=== PATIENT | male | born 1995 | race Caucasian/White ===

== ENCOUNTER → 2019-12-03 14:16 | Outpatient (BNVA) | payer SELFPAY | PROVIDERS: Visit Provider Nurse Practitioner | DX: Z20.2 Contact with and (suspected) exposure to infections with a predominantly sexual mode of transmission (principal); A60.02 Herpesviral infection of other male genital organs | CPT/HCPCS: 81000; 87491; 87591 ==

== ENCOUNTER → 2020-08-05 12:06 | Outpatient (BNVA) | payer OTHER, SELFPAY | PROVIDERS: Visit Provider Nurse Practitioner Psychiatric/Mental Health | DX: Z79.899 Other long term (current) drug therapy (principal) | CPT/HCPCS: 80053; 80061; 83036 ==

== ENCOUNTER → 2022-09-29 11:27 | Outpatient (BNVA) | payer OTHER, SELFPAY | PROVIDERS: PCP Family Medicine; Visit Provider Nurse Practitioner Psychiatric/Mental Health | DX: Z79.899 Other long term (current) drug therapy (principal) | CPT/HCPCS: 80053; 80061; 83036 ==

== ENCOUNTER 2022-12-15 14:15 | Outpatient (CLI) | payer SELFPAY ==
--- NOTE | 2022-12-15 14:36 | ECG_ITS ---
[facility] Test Date: 2022-12-15 Pat Name: Minor Burrell Department: Room: Gender: Male Mortgage Loan Processor: : 1995 Requested By: Nany Barker Order Number: [id number] Grazyna MD: Sacha Mcclendon M.D. Measurements Intervals [place] Rate: 61 P: 23 SD: 156 QRS: 51 QRSD: 90 T: 11 QT: 354 QTc: 357 Interpretive Statements SINUS RHYTHM Compared to ECG 10/20/2014 21:17:53 Sinus tachycardia no longer present Electronically Signed On 12-15-2022 16:37:43 [employer]CHITECT by Sacha Mcclendon M.D. [email or web address] [email or web address] [email or web address] [id number]
== END 2022-12-15 14:16 | disposition home or self-care (01) ==
LOC: RT 14:15
PROVIDERS: PCP Family Medicine; Visit Provider Nurse Practitioner Psychiatric/Mental Health
DX: Z79.899 Other long term (current) drug therapy (principal)
CPT/HCPCS: 93005

== ENCOUNTER 2023-01-17 01:04 | Emergency (ER) | payer SELFPAY ==
[2023-01-17 01:08] VITALS: BP 157/102; PULSE 87; RESP 18; TEMP 36.6; O2SAT 98; BMI 25.7
--- NOTE | 2023-01-17 01:08 | W.ED.PSYCHS ---
HPI - Psych General: Chief Complaint: Psychiatric Symptoms Stated Complaint: panic attack Time Seen by Provider: 01/17/23 01:06 History of Present Illness: 27-year-old male presents emergency department with complaints of a panic attack. He states that he has medications he normally takes for his panic attack to include Geodon, Haldol and propranolol. He states that he also drinks alcohol periodically. He states he feels much better now but did feel anxious prior to coming to the emergency department. He states he is unsure what causes his panic attacks but he takes medication for all of that. He states he has recently seen his behavioral health provider and has not received any medication changes. Review of Systems General: Reports: 10 or more systems reviewed and unremarkable except in HPI and below Psych: Reports: anxiety and panic attacks [facility] ED PFSH: Medical History (Updated 01/17/23 @ 01:15 by Joselito Slater MD) Alcohol abuse, episodic drinking behavior Last use in June 2022 Medical marijuana use Bipolar I disorder, most recent episode mixed, severe without psychotic features Psychiatric care Nicotine dependence, cigarettes, uncomplicated Generalized anxiety disorder Social History (Updated 09/29/22 @ 10:14 by Litzy Gleason LPN) Smoking and tobacco/nicotine status: current every day tobacco/nicotine user cigarettes Packs smoked per day: 1 Alcohol intake: current Alcohol intake frequency: holidays/special occasions only Alcohol type: beer Substance/Drug Use: never Household members: spouse and children Marital status: Number of children: 6 Current occupational status: employed Sexually active: Yes Do you think of yourself as: Straight/Heterosexual Current gender identity: Male Physical Exam Narrative: EXAM NARRATIVE: Constitutional: the patient appears well nourished and with normal development. Vital signs reviewed as documented. HENMT: Normocephalic, atraumatic. Extermal ears with normal appearance without drainage. Nose without drainage, normal appearance. Mucus membranes moist. Neck is supple, No jugular venous distension, trachea is midline, no appreciable carotid bruits. No lymphadenopathy. No meningeal signs. Flexion, extension and lateral rotation is without pain. Eyes: Pupils are equal, round, reactive to light and accommodation. No scleral icterus. Extra-ocular movement are intact. Thorax is symmetrical and with equal rise and fall with respirations. Resp: Lungs are clear to auscultation. No wheezes, rales, crackles or ronchi at present. Cardio: Regular rate and rhythm. Positive S1, S2. No appreciable murmurs, rubs or gallops. GI: Abdominal exam reveals normal bowel sounds to all quadrants. No organomegaly. No obvious palpable masses noted. No hepatomegally appreciated. Soft, nontender to palpation. Extremity: Extremities are non-edematous and both femoral and pedal pulses are 2+ and equal bilaterally. Moves all extremities well, sensation in all extremities. Neuro: Alert and oriented x4, person, place, time and situation. Cranial nerves II through XII are grossly intact, there is no focal neurological deficits that I can appreciate at present. Motor strength in the upper and lower extremities are equal and bilateral 5/5. Psych: Cooperative, calm, normal thought process, appropriate judgment. Skin: No lesions, rashes. No gross abnormalities noted. Back: Symmetrical, no obvious deformity, No CVA tenderness Course Vital Signs: Vital signs: Vital Signs Temperature 97.9 F 01/17/23 01:24 Pulse Rate 87 01/17/23 01:24 Respiratory Rate 18 01/17/23 01:24 Blood Pressure 149/97 01/17/23 01:24 Pulse Oximetry 98 01/17/23 01:24 Oxygen Delivery Me thod Room Air 01/17/23 01:08 MDM - Psych Medical Decision Making Physical exam completed and documented, given the patient's previous psychiatric medications and his statement that he recently took all the medications as prescribed and that he is feeling much better I will monitor him in the emergency department trend his vital signs and have him follow-up with his behavioral health medical team. Medical Records I reviewed the patient's medical records. No radiology studies performed this visit Discharge Plan Discharge Patient Disposition: Home Clinical Impression: Generalized anxiety disorder Condition: Stable Prescriptions: No Action ziprasidone HCl 40 mg capsule 40 mg PO DIRECTED Qty: 30 3RF Rx Instructions: Take one capsule at dinner with 500 calorie meal propranolol 10 mg tablet 10 mg PO BID Qty: 60 3RF Rx Instructions: Take one tablet every morning and evening haloperidol 5 mg tablet 5 mg PO DAILY PRN (Reason: severe anxiety/agitation) Qty: 30 1RF Rx Instructions: Take one tablet daily as needed for severe acute anxiety/agitation Discharge Orders: Discharge ED (Routine); Ordered 01/17/23 Ordered By: Joselito Slater Discharge Diet: Advance as tolerated Discharge Activity: Resume usual activity Patient Instructions: Opioid Safety, Pain Management Activity Restrictions/Additional Instructions: Activity Restrictions/Additional Instructions: Thank you for choosing [facility] for your healthcare needs today. Please realize that you were seen in the Emergency Department and that we are providing you with an emergency medical screening exam and this may not be a complete and all inclusive of all the testing and or medical work-up that you may need to determine your ailment or severity of your illness. It is very important that you follow-up as instructed with your Primary care provider or Specialist for additional evaluation and to discuss your medical treatment plan. You may return to the Emergency Department should you have concerns or if your condition changes or worsens in any way. Coding Level of Care Code ED Special Education Inclusion Teacher for Jake Khan
[2023-01-17 01:24] VITALS: BP 149/97; PULSE 87; RESP 18; TEMP 36.6; O2SAT 98
== END 2023-01-17 01:41 | disposition home or self-care (01) ==
PROVIDERS: Emergency Provider Internal Medicine
DX: F41.1 Generalized anxiety disorder (principal); F17.210 Nicotine dependence, cigarettes, uncomplicated
CPT/HCPCS: 99283

== ENCOUNTER 2023-09-17 23:21 | Emergency (ER) | payer SELFPAY ==
[2023-09-17 23:34] VITALS: BP 127/91; PULSE 85; RESP 16; TEMP 37.1; O2SAT 96; BMI 30.2
--- NOTE | 2023-09-17 23:35 | ED_ITS ---
HPI - Ear Problem General: Chief complaint: Ear Stated complaint: Ear pain Time Seen by Provider: 09/17/23 23:34 History of Present Illness: 28-year-old male patient comes in today for complaints of left ear pain. Patient has a ear that has given him pain for about 1 week. Patient has been trying some colloidal silver eardrops to his ear with no relief. Related Data Previous Rx's Medication Instructions Recorded clonidine HCl 0.1 mg tablet 0.1 mg PO BEDTIME #30 tabs 07/07/23 propranolol 20 mg tablet 20 mg PO BID #60 tabs 07/07/23 quetiapine 150 mg tablet,extended 150 mg PO .8 pm #30 tabs 07/07/23 release 24 hr (Seroquel XR) amoxicillin 500 mg tablet 1,000 mg (2 x 500 mg) PO BID #30 09/17/23 tabs Allergies Allergy/AdvReac Type Severity Reaction Status Date / Time lorazepam [From Ativan] Allergy ADR-Irritab Verified 07/07/23 13:54 le citalopram AdvReac Severe ADR-Halluci Verified 07/07/23 13:54 erin Review of Systems General: Reports: 10 or more systems reviewed and unremarkable except in HPI and below PFSH ED 2 PFSH: Medical History (Updated 09/17/23 @ 23:42 by CHLOE Marroquin) Bipolar I disorder, most recent episode mixed, severe without psychotic features Psychiatric care Nicotine dependence, cigarettes, uncomplicated Generalized anxiety disorder Social History (Updated 09/29/22 @ 10:14 by Litzy Gleason LPN) Smoking and tobacco/nicotine status: current every day tobacco/nicotine user cigarettes Packs smoked per day: 1 Alcohol intake: current Alcohol intake frequency: holidays/special occasions only Alcohol type: beer Substance/Drug Use: never Household members: spouse and children Marital status: Number of children: 6 Current occupational status: employed Sexually active: Yes Do you think of yourself as: Straight/Heterosexual Current gender identity: Male Physical Exam Const: COMMON NORMALS: alert HENMT: COMMON NORMALS: normocephalic HEAD & SCALP: normocephalic EXTERNAL AUDITORY CANAL: Abnormal EAC present EAC laterality: left Details: erythema and otic discharge THROAT: posterior oropharynx normal Neck/C-Spine: COMMON NORMALS: full ROM Resp: COMMON NORMALS: normal respiratory effort Cardio: COMMON NORMALS: regular rate RATE: regular rate Back/Pelvis: COMMON NORMALS: thoracic and lumbar spine normal to inspection Extremity: COMMON NORMALS: full ROM Neuro: SENSORIUM/ORIENTATION: Yes alert Skin: COMMON NORMALS: turgor normal GENERAL SKIN EXAM: turgor normal Course Vital Signs: Vital signs: Vital Signs Temperature 98.7 F 09/17/23 23:34 Pulse Rate 85 09/17/23 23:34 Respiratory Rate 16 09/17/23 23:34 Blood Pressure 127/91 09/17/23 23:34 Pulse Oximetry 96 09/17/23 23:34 Oxygen Delivery Me thod Room Air 09/17/23 23:34 MDM - Ear Medical Decision Making 28-year-old male patient comes in today with complaints of pain to the left ear. On exam patient has some drainage noted in the left ear with surrounding erythema to the ear canal. Tympanic membrane notes some drainage from a perforated membrane. This may be a chronic opening as patient does report histo ry of recurrent ear infections. Will place patient on otic drops and oral antibiotic for dual coverage. Recommend follow-up with primary care. Recommend return to ER for new concerns. No radiology studies performed this visit Discharge Plan Discharge Patient Disposition: Home Clinical Impression: Otitis media Qualifiers: Otitis media type: suppurative Chronicity: acute Laterality: left Recurrence: not specified as recurrent Spontaneous tympanic membrane rupture: with spontaneous rupture Qualified Code(s): H66.012 - Acute suppurative otitis media with spontaneous rupture of ear drum, left ear Condition: Stable Prescriptions: New amoxicillin 500 mg tablet 1,000 mg PO BID Qty: 30 0RF No Action clonidine HCl 0.1 mg tablet 0.1 mg PO BEDTIME Qty: 30 6RF Rx Instructions: May take one tablet at bedtime propranolol 20 mg tablet 20 mg PO BID Qty: 60 6RF Rx Instructions: Take one tablet twice per day quetiapine [Seroquel XR] 150 mg tablet extended release 24 hr 150 mg PO .8 pm Qty: 30 6RF Rx Instructions: Take one tablet at 8 pm Discharge Orders: Discharge ED (Routine); Ordered 09/17/23 Ordered By: Byron Francisco Discharge Diet: Usual diet Discharge Activity: Increase activity as tolerated Patient Instructions: Ear Infection (ED) Activity Restrictions/Additional Instructions: Use eardrops 4 drops to the affected ear 3 times a day while awake for the next 7 days. Take oral antibiotic 2 capsules of amoxicillin 500, twice a day for 7 days. Drink plenty of water and fluids. Use acetaminophen ibuprofen for pain. Follow-up with primary care. Coding Level of Care Code ED Table Assembler Metal for Jake Khan
[2023-09-18] VITALS: BP 125/87; PULSE 81; RESP 15; O2SAT 95
[2023-09-18] MEDS: amoxicillin 500 mg Capsule 1000 MG PO (00:16)
[2023-09-18] MEDS: neomycin-poly-dex Op 5 mL Btl 4 DROP XX (00:17)
[2023-09-18 00:30] VITALS: BP 126/77; PULSE 71; RESP 17; O2SAT 97
== END 2023-09-18 00:35 | disposition home or self-care (01) ==
PROVIDERS: Emergency Provider Nurse Practitioner Family
DX: H66.012 Acute suppurative otitis media with spontaneous rupture of ear drum, left ear (principal); F17.210 Nicotine dependence, cigarettes, uncomplicated
CPT/HCPCS: 99283

== ENCOUNTER → 2023-09-29 15:19 | Outpatient (BNVA) | payer OTHER, SELFPAY | PROVIDERS: Visit Provider Nurse Practitioner Psychiatric/Mental Health | DX: Z79.899 Other long term (current) drug therapy (principal) | CPT/HCPCS: 80053; 80061; 83036 ==

== ENCOUNTER → 2024-08-06 10:14 | Outpatient (BNVA) | payer BC, SELFPAY | PROVIDERS: Visit Provider Nurse Practitioner Psychiatric/Mental Health | DX: Z79.899 Other long term (current) drug therapy (principal) | CPT/HCPCS: 80053; 80061; 83036 ==